=== PATIENT | female | born 1965 | race Caucasian/White ===

== ENCOUNTER 2016-11-07 17:46 | Emergency (ER) | payer MEDICAID ==
[2016-08-19 10:20] VITALS: Ht 167.6 cm; Wt 104.3 kg
[~2016-11-07] VITALS: Ht 167.6 cm; Wt 104.3 kg
[~2016-11-07 17:46] MED LIST: ALBMDI INH; AMLO5TAB4 PO; AZIT250T PO; LEVO137T20 PO; Levoxyl PO; METH500T PO; METO25TA6 PO; PRED20TA PO; PRO20 PO; SYN75 PO; TEMA15CA51 PO; TRAM50TA92 PO; thyroid
[2016-11-07 17:52] VITALS: BP 156/98; PULSE 85; RESP 20; TEMP 97.6; O2SAT 92
[2016-11-07 20:35] VITALS: BP 150/91; PULSE 84; RESP 18; TEMP 97.6; O2SAT 92
== END 2016-11-07 20:35 | disposition home or self-care (01) ==
LOC: SED 17:46
DX: J40 Bronchitis, not specified as acute or chronic (principal); I10 Essential (primary) hypertension; E03.9 Hypothyroidism, unspecified
CPT/HCPCS: 71020-TC; 99283

== ENCOUNTER 2017-05-04 10:39 | Inpatient (IN) | payer MEDICAID ==
[~2017-05-04] VITALS: Ht 167.6 cm; Wt 103.4 kg
[~2017-05-04 10:39] MED LIST changes: -LEVO137T20 PO; -Levoxyl PO; -METH500T PO; -METO25TA6 PO; -PRO20 PO; -TEMA15CA51 PO; -TRAM50TA92 PO; -thyroid
[2017-05-04 10:43] VITALS: BP_SYST 159
[2017-05-04] MEDS ORDERED: ASPIRIN 325 MG TABLET PO ONE (11:00)
[2017-05-04] MEDS ORDERED: MORPHINE 4 MG/ML INJ. SYRINGE IVP ONE (11:00)
[2017-05-04] MEDS ORDERED: ONDANSETRON HCL 4 MG/2 ML VIAL IVP ONE (11:00)
[2017-05-04 12:08] LABS: BASOPHILS # (AUTO) 0.1 K/uL (0.0-0.2); BASOPHILS % (AUTO) 0.9 % (0.0-2.0); EOSINOPHILS # (AUTO) 0.2 K/uL (0.0-0.4); EOSINOPHILS % (AUTO) 2.2 % (0.0-4.0); HEMATOCRIT 47.1 % (36-48); HEMOGLOBIN 15.5 g/dL (12.0-16.0); LYMPHOCYTES # (AUTO) 1.8 K/uL (1.0-5.5); LYMPHOCYTES % (AUTO) 22.9 % (20.5-51.5); MEAN CORPUSCULAR HEMOGLOBIN 29 pg (27-31); MEAN CORPUSCULAR HGB CONC 33 % (32-36); MEAN CORPUSCULAR VOLUME 88 fL (79.0-98.0); MONOCYTES # (AUTO) 0.4 K/uL (0.0-1.0); MONOCYTES % (AUTO) 4.6 % (1.7-9.3); NEUTROPHILS # (AUTO) 5.5 K/uL (1.8-7.7); NEUTROPHILS % (AUTO) 69.4 % (40.0-70.0); PLATELET COUNT (AUTO) 333 K/uL (130-430); RED BLOOD CELL COUNT(AUTO) 5.38 MIL/uL (4.2-6.2); RED CELL DISTRIBUTION WIDTH 12.6 % (9.0-15.0)
[2017-05-04 12:39] LABS: CALCIUM 9.1 mg/dL (8.4-11.0); CREATININE 0.62 mg/dL (0.55-1.30); POTASSIUM 3.8 mmol/L (3.5-5.1)
[2017-05-04 12:44] LABS: ALBUMIN 4.1 g/dL (3.4-4.8); TOTAL BILIRUBIN 0.4 mg/dL (0.0-1.0); TOTAL PROTEIN, SERUM 7.9 g/dL (6.4-8.3)
[2017-05-04] MEDS ORDERED: NITROGLYCERIN 0.4 MG TAB.SUBL SL ONE (13:00)
[2017-05-04] MEDS ORDERED: GABA-531 PO (13:17)
[2017-05-04 14:17] VITALS: BP_SYST 123
[2017-05-04] MEDS ORDERED: MORPHINE 2 MG/ML INJ. SYRINGE IVP PRN (16:00)
[2017-05-04 16:29] LABS: FREE T4 (FREE THYROXINE) 0.9 ng/dL (0.6-1.6); PHOSPHORUS 3.6 mg/dL (2.7-4.5); THYROID STIMULATING HORMONE 2.39 uIu/mL (0.34-4.82)
[2017-05-04] MEDS: ONDANSETRON HCL 4 MG/2 ML VIAL IVP PRN ×2 (16:29→20:36)
[2017-05-04 16:40] VITALS: BP_SYST 123
[2017-05-04] MEDS: NACL 0.9% 1,000 ML IV SCH (16:41)
[2017-05-04] MEDS ORDERED: ZOLPIDEM TARTRATE 5 MG TABLET PO ONE (19:45)
[2017-05-04 20:00] VITALS: BP_SYST 136
[2017-05-04] MEDS ORDERED: INSULIN REGULAR, HUMAN 100 UNITS/ML, 10 ML VIAL (novoLIN R) SUBCUT PRN (20:00)
[2017-05-04] MEDS ORDERED: ZOLPIDEM TARTRATE 5 MG TABLET PO PRN (20:00)
[2017-05-04] MEDS: DOCUSATE SODIUM 100 MG CAPSULE PO SCH (20:34)
[2017-05-04] MEDS ORDERED: METOPROLOL SUCCINATE 25 MG TAB.SR.24H (TOPROL XL) PO SCH (21:00)
[2017-05-04 22:29] LABS: BILIRUBIN,URINE NEGATIVE (NEGATIVE); BLOOD, URINE NEGATIVE (NEGATIVE); CLARITY/URINE CLEAR (CLEAR); COLOR,URINE YELLOW (YELLOW); GLUCOSE,URINE NEGATIVE (NEGATIVE); KETONES,URINE NEGATIVE (NEGATIVE); LEUKOCYTE ESTERASE ,URINE NEGATIVE (NEGATIVE); NITRITE, URINE NEGATIVE (NEGATIVE); PROTEIN URINE NEGATIVE (NEGATIVE); UROBILINOGEN,URINE 0.2 (0.2-1.0)
[2017-05-05] VITALS (7 sets, daily range): BP systolic 106–137
[2017-05-05] MEDS: ONDANSETRON HCL 4 MG/2 ML VIAL IVP PRN ×2 (06:31→10:08)
[2017-05-05] MEDS: ACETAMINOPHEN 325 MG TABLET PO PRN ×2 (06:32→10:08)
[2017-05-05] MEDS: NACL 0.9% 1,000 ML IV SCH ×2 (06:32→21:50)
[2017-05-05 07:29] LABS: BASOPHILS % (AUTO) 0.7 % (0.0-2.0); EOSINOPHILS # (AUTO) 0.2 K/uL (0.0-0.4); HEMATOCRIT 42.3 % (36-48); HEMOGLOBIN 14.2 g/dL (12.0-16.0); LYMPHOCYTES % (AUTO) 29.2 % (20.5-51.5); MEAN CORPUSCULAR HEMOGLOBIN 30 pg (27-31); MEAN CORPUSCULAR HGB CONC 34 % (32-36); MEAN CORPUSCULAR VOLUME 88 fL (79.0-98.0); MONOCYTES # (AUTO) 0.5 K/uL (0.0-1.0); MONOCYTES % (AUTO) 6.9 % (1.7-9.3); NEUTROPHILS # (AUTO) 4.3 K/uL (1.8-7.7); NEUTROPHILS % (AUTO) 60.2 % (40.0-70.0); PLATELET COUNT (AUTO) 274 K/uL (130-430); RED BLOOD CELL COUNT(AUTO) 4.79 MIL/uL (4.2-6.2); RED CELL DISTRIBUTION WIDTH 12.7 % (9.0-15.0)
[2017-05-05 07:39] LABS: CALCIUM 8.2 mg/dL (8.4-11.0); CREATININE 0.72 mg/dL (0.55-1.30); POTASSIUM 4.1 mmol/L (3.5-5.1)
[2017-05-05] MEDS: DOCUSATE SODIUM 100 MG CAPSULE PO SCH ×2 (09:46→21:02)
[2017-05-05] MEDS: LISINOPRIL 5 MG TABLET PO SCH (09:46)
[2017-05-05] MEDS: PREDNISONE 20 MG TABLET PO SCH ×2 (09:47→21:00)
[2017-05-05] MEDS: METOPROLOL TARTRATE 25 MG TABLET PO SCH ×2 (09:47→21:00)
[2017-05-05] MEDS: ASPIRIN 81 MG TAB.CHEW PO SCH (09:47)
[2017-05-05] MEDS ORDERED: PROMETHAZINE HCL 25 MG/ML AMP IVP PRN (11:30)
[2017-05-05] MEDS: KETOROLAC TROMETHAMINE 30 MG VIAL IVP PRN ×2 (12:01→21:05)
[2017-05-05 15:57] LABS: T4 (THYROXINE) 7.7 ug/dL (4.5-12.0)
[2017-05-05] MEDS ORDERED: GABAPENTIN 300 MG CAPSULE PO SCH (21:00)
[2017-05-05] MEDS ORDERED: SIMVASTATIN 20 MG TABLET PO SCH (21:00)
[2017-05-06 03:40] VITALS: BP_SYST 97
[2017-05-06 04:00] VITALS: BP_SYST 113
[2017-05-06] MEDS ORDERED: LEVOTHYROXINE SODIUM 0.075 MG TABLET PO SCH (07:00)
[2017-05-06 07:32] LABS: BASOPHILS % (AUTO) 0.5 % (0.0-2.0); EOSINOPHILS # (AUTO) 0.2 K/uL (0.0-0.4); EOSINOPHILS % (AUTO) 1.6 % (0.0-4.0); HEMATOCRIT 40.3 % (36-48); HEMOGLOBIN 13.8 g/dL (12.0-16.0); LYMPHOCYTES # (AUTO) 2.3 K/uL (1.0-5.5); LYMPHOCYTES % (AUTO) 23.9 % (20.5-51.5); MEAN CORPUSCULAR HEMOGLOBIN 30 pg (27-31); MEAN CORPUSCULAR HGB CONC 34 % (32-36); MEAN CORPUSCULAR VOLUME 89 fL (79.0-98.0); MONOCYTES # (AUTO) 0.5 K/uL (0.0-1.0); MONOCYTES % (AUTO) 5.7 % (1.7-9.3); NEUTROPHILS # (AUTO) 6.6 K/uL (1.8-7.7); NEUTROPHILS % (AUTO) 68.3 % (40.0-70.0); PLATELET COUNT (AUTO) 268 K/uL (130-430); RED BLOOD CELL COUNT(AUTO) 4.54 MIL/uL (4.2-6.2); RED CELL DISTRIBUTION WIDTH 12.8 % (9.0-15.0)
[2017-05-06 07:38] LABS: WHITE BLOOD COUNT (AUTO) 9.6 K/uL (4.8-10.8)
[2017-05-06 07:47] LABS: CALCIUM 8.2 mg/dL (8.4-11.0); CREATININE 0.54 mg/dL (0.55-1.30); PHOSPHORUS 3.1 mg/dL (2.7-4.5); POTASSIUM 3.9 mmol/L (3.5-5.1)
[2017-05-06 08:16] VITALS: BP_SYST 135
[2017-05-06] MEDS: DOCUSATE SODIUM 100 MG CAPSULE PO SCH (08:49)
[2017-05-06] MEDS: ASPIRIN 81 MG TAB.CHEW PO SCH (08:49)
[2017-05-06] MEDS: METOPROLOL TARTRATE 25 MG TABLET PO SCH (08:49)
[2017-05-06] MEDS: LISINOPRIL 5 MG TABLET PO SCH (08:50)
[2017-05-06] MEDS: PREDNISONE 20 MG TABLET PO SCH (08:50)
[2017-05-06] MEDS ORDERED: LEVO75TA7 PO (10:10)
[2017-05-06] MEDS ORDERED: AMLO10TA88 PO (10:10)
[2017-05-06 10:25] VITALS: BP_SYST 132
[2017-05-06 17:04] LABS: HEMOGLOBIN A1C 5.8 % (4.8-5.6)
== END 2017-05-06 11:45 | disposition home or self-care (01) | DRG 243 ==
LOC: SED 10:39 → STU 13:20
PROVIDERS: ADMIT Family Medicine; ATTEND Family Medicine
DX: K21.9 Gastro-esophageal reflux disease without esophagitis (principal); I10 Essential (primary) hypertension; R51 Headache; E03.9 Hypothyroidism, unspecified; E66.9 Obesity, unspecified; M79.7 Fibromyalgia; Z91.19 Patient's noncompliance with other medical treatment and regimen; Z79.899 Other long term (current) drug therapy; Z68.36 Body mass index [BMI] 36.0-36.9, adult
CPT/HCPCS: 36415; 70450-TC; 71010; 80048; 80053; 80061; 81003; 82150-TC; 82962; 83036; 83690-TC; 83735-TC; 83880; 84100-TC; 84436; 84439; 84443-TC; 84479; 84484; 85025; 85610-TC; 85730-TC; 93005; 93306; 96374; 96375; 99285; J1815; J1885; J2270; J2405; J2550; J7030; J7120; J7512